=== PATIENT | female | born 1970 | race Caucasian/White ===

== ENCOUNTER → 2018-09-28 | Outpatient (CLI) | payer BC | LOC: BRMIMAGING 08:29 | PROVIDERS: ATTEND Obstetrics & Gynecology | DX: N92.1 Excessive and frequent menstruation with irregular cycle (principal); D25.9 Leiomyoma of uterus, unspecified; N83.291 Other ovarian cyst, right side | CPT/HCPCS: 76856-PO ==

== ENCOUNTER → 2018-10-12 | Outpatient (CLI) | payer BC | LOC: BRMIMAGING 15:00 | PROVIDERS: ATTEND Obstetrics & Gynecology | DX: Z12.31 Encounter for screening mammogram for malignant neoplasm of breast (principal) ==